=== PATIENT | male | born 1985 | race Two or more races ===

== ENCOUNTER 2020-01-18 10:38 | Emergency (ER) | payer MEDICAID, OTHER ==
[~2020-01-18] VITALS: Ht 177.8 cm; Wt 82.6 kg
[2020-01-18 10:42] VITALS: BP 142/103
[2020-01-18] MEDS ORDERED: ONDANSETRON ODT 4 MG TAB PO ONE (11:45)
== END 2020-01-18 12:00 | disposition left against medical advice (07) ==
LOC: ER 10:38
DX: J02.9 Acute pharyngitis, unspecified (principal); R51.9 Headache, unspecified; Z53.21 Procedure and treatment not carried out due to patient leaving prior to being seen by health care provider